=== PATIENT | male | born 1980 | race Caucasian/White ===

== ENCOUNTER 2016-10-10 09:43 | Day surgery (SDC) | payer OTHER ==
[2016-10-06 12:50] VITALS: BMI 25.0
[~2016-10-10 09:43] MED LIST: LEVOFLOXACIN 500 MG PREMIX BAG IVPB ONE
[2016-10-10] MEDS ORDERED: LEVOFLOXACIN 500 MG IVPB 100 ML IVPB ONE (13:23)
[2016-10-10] MEDS ORDERED: LIDOCAINE HCL/PF 2% SDV 5ML VIAL ONE (13:23)
[2016-10-10] MEDS ORDERED: MIDAZOLAM HCL 2 MG/2 ML SINGLE DOSE VIAL ONE (13:24)
[2016-10-10] MEDS ORDERED: PROPOFOL 20 ML ONE (13:24)
[2016-10-10] MEDS ORDERED: LEVOFLOXACIN 500 MG PREMIX BAG IVPB ONE (13:30)
[2016-10-10] MEDS ORDERED: KETOROLAC TROMETHAMINE 30 MG/1 ML VIAL ONE (13:38)
[2016-10-10] MEDS ORDERED: IBUPROFEN 800 MG/8 ML IJ IVPB PRN (14:10)
[2016-10-10] MEDS ORDERED: ONDANSETRON 4 MG/2 ML VIAL IVPUSH PRN (14:10)
[2016-10-10] MEDS ORDERED: oxyCODONE HCL 5 MG TABLET PO PRN (14:10)
--- NOTE | 2016-10-10 14:13 | OP ---
Operative Note - Note: Operative Date: 10/10/16 Pre-Operative Diagnosis: left ureteral stone Operation: left ESWL Findings: very dense 10 mm left ureteral stone with stent Post-Operative Diagnosis: Same as Pre-op Surgeon: Genaro Robertson Anesthesia: General Operative Report Dictated: Yes
[2016-10-10 15:00] VITALS: TEMP 97.8
[2016-10-10 17:19] VITALS: BP 125/66; PULSE 76
--- NOTE | 2016-10-10 20:50 | OP ---
DATE OF OPERATION: 10/10/2016 PREOPERATIVE DIAGNOSIS: Left ureteral stone. POSTOPERATIVE DIAGNOSIS: Left ureteral stone. PROCEDURE: Left extracorporeal shock-wave lithotripsy. ATTENDING: Mary Nolan MD ANESTHESIA: General. OPERATION: The patient was brought in the operating room, placed in supine position on the operating room table. The patient is status post a left ureteral stent placed in for an impacted left ureteral stone. The patient had fluoroscopy and ultrasonography performed on the operating room table prior to anesthesia. A very dense 1-cm stone was noted in the left upper ureter. Once the stone was identified, anesthesia was administered. Levaquin 500 mg was also given intravenously for surgical prophylaxis. At this point, extracorporeal shock-wave lithotripsy was commenced. Then 3000 impulses at 20 joules of power was administered to the stone. The stone appeared very dense on fluoroscopy. There was questionable fragmentation. Due to the hardness of the stone, the patient may require a followup laser lithotripsy utilizing a holmium laser. Disposition of patient was to recovery room. No complications were noted. MARY NOLAN M.D. [id number]
== END 2016-10-10 17:19 | disposition home or self-care (01) ==
LOC: JASU-SURG 09:43
PROVIDERS: ATTEND Urology
PROC: 0TF7XZZ Fragmentation in Left Ureter, External Approach (ICD-10-PCS; principal; 2016-10-10 12:00)
DX: N20.1 Calculus of ureter (principal)
CPT/HCPCS: 94760

== ENCOUNTER 2018-01-15 13:16 | Day surgery (SDC) | payer OTHER ==
[2018-01-11 17:53] VITALS: BMI 25.0
[2018-01-15] MEDS ORDERED: MIDAZOLAM HCL 2 MG/2 ML SINGLE DOSE VIAL ONE ×3 (16:01→16:25)
[2018-01-15] MEDS ORDERED: oxyCODONE HCL 5 MG TABLET PO PRN (16:32)
[2018-01-15] MEDS ORDERED: ONDANSETRON 4 MG/2 ML VIAL IVPUSH PRN (16:32)
--- NOTE | 2018-01-15 16:32 | OP ---
Operative Note - Note: Operative Date: 01/15/18 Pre-Operative Diagnosis: RIGHT KIDNEY STONE Operation: RIGHT ESWL Findings: 4 mm mid pole right kidney stone Surgeon: Genaro Robertson Anesthesia: Fractional
[2018-01-15] MEDS ORDERED: LACTATED RINGERS SOLUTION 1,000 ML IV SCH (16:45)
[2018-01-15 17:21] VITALS: PULSE 68
[2018-01-15 18:28] VITALS: BP 98/60; TEMP 97.8
--- NOTE | 2018-01-15 23:24 | OP ---
DATE OF OPERATION: 01/15/2018 PREOPERATIVE DIAGNOSIS: Right renal stone. POSTOPERATIVE DIAGNOSIS: Right renal stone. PROCEDURE: Right extracorporeal shock wave lithotripsy. ATTENDING: Mary Nolan MD ANESTHESIA: Fractional. DESCRIPTION OF OPERATION: The patient was brought in the operating room, placed in supine position on the operating room table. Ultrasonography and fluoroscopy were performed. A 4-mm right mid-pole stone was identified. Anesthesia and antibiotics were then given. Shock wave lithotripsy was then started; 2500 impulses at 17 joules of power were administered to the stone, and excellent fragmentation of the stone was noted. No complications were noted. The patient tolerated the procedure very well. MARY NOLAN M.D. [id number]
== END 2018-01-15 18:42 | disposition home or self-care (01) ==
LOC: JASU-SURG 13:16
PROVIDERS: ATTEND Urology
PROC: 0TF3XZZ Fragmentation in Right Kidney Pelvis, External Approach (ICD-10-PCS; principal; 2018-01-15 14:45)
DX: N20.0 Calculus of kidney (principal)